=== PATIENT | female | born 1945 ===

== ENCOUNTER 2017-04-05 07:18 | Day surgery (SDC) | payer MEDICARE ==
[~2017-04-05 07:18] MED LIST: Acetaminophen TAB* 325 MG PO PRN; Buffered Lidocaine 0.9% SYRIN* 5 ML/SYR SYRINGE INTRADERM ONE
[2017-04-05] MEDS ORDERED: Midazolam* 1 MG/ML 2 ML VIAL (2 MG) ONE ×2 (08:34→08:38)
[2017-04-05 09:34] VITALS: BP 161/84
[2017-04-05] MEDS ORDERED: Lidocaine 1% MPF* 2 ML VIAL ONE (13:58)
[2017-04-05] MEDS ORDERED: Tropicamide 1% OPTH.SOL* BTL ONE (13:58)
[2017-04-05] MEDS ORDERED: Cyclopentolate 1% OPTH.SOL* 2 ML BTL ONE (13:58)
[2017-04-05] MEDS ORDERED: Povidone Iodine 5% OPTH* 30 ML BTL ONE (13:58)
[2017-04-05] MEDS ORDERED: Flurbiprofen 0.03% OPTH.SOL* 2.5 ML BTL ONE (13:58)
[2017-04-05] MEDS ORDERED: Buffered Lidocaine 0.9% SYRIN* 5 ML/SYR SYRINGE ONE (13:58)
[2017-04-05] MEDS ORDERED: Phenylephrine 2.5% OPTH.SOL* 2 ML BTL ONE (13:58)
[2017-04-05] MEDS ORDERED: Neomycin/Polymy/Dex OPHTH.OIN* 3.5 GM ONE (13:58)
[2017-04-05] MEDS ORDERED: acetaZOLAMIDE TAB* 250 MG ONE (13:58)
[2017-04-05] MEDS ORDERED: Tetracaine 0.5% OPTH.SOL 4 ML* 1 DROP BTL ONE (13:58)
--- NOTE | 2017-04-05 21:22 | OP ---
DATE OF OPERATION: 04/05/17 - [facility] DATE OF : 49 SURGEON: Kwame Calvo MD. ANESTHESIOLOGIST: Leydi Stein MD ANESTHESIA: Monitored anesthesia care. PRE-OPERATIVE DIAGNOSIS: Cataract, right eye. POST-OPERATIVE DIAGNOSIS: Cataract, right eye. OPERATIVE PROCEDURE: Cataract surgery, right eye. IMPLANTS: SN6AT5 20 diopter lens at 40 degrees in the right eye. COMPLICATIONS: None. DESCRIPTION OF PROCEDURE: The patient was given phenylephrine 2.5% and cyclopentolate 1% eyedrops in the operative eye in the preoperative area. The patient was brought to the operating room where a time-out was taken to identify the correct patient, site and side of surgery. The patient's right eye was prepped and draped in the usual sterile fashion with 5% Betadine. A second time-out was taken to verify the correct patient, site and side of surgery and correct lens selection. A lid speculum was placed to the right eye. Using an intraoperative degree marker, corneal markings at 40 degrees were indicated based on markings made in the preoperative area. A 1-mm paracentesis blade was used to make a clear corneal incision in the superotemporal position. Preservative-free 1% lidocaine was injected into the anterior chamber. DisCoVisc was then injected into the anterior chamber. A 2.75 mm keratome blade was used to make a triplanar incision at the inferotemporal position. A cystotome initiated a capsulorrhexis, which was completed with Utrata forceps in a continuous and curvilinear manner. Hydrodissection of the lens was performed with BSS on a cannula. The lens could be spun in the capsular bag. The phacoemulsification handpiece was used with a divide and conquer technique to remove the nucleus in its entirety with 15.53 CDE. The I/A handpiece then removed the residual cortical lens material. DisCoVisc was injected to inflate the capsular bag. The planned SN6AT5 20 diopter lens was injected into the capsular bag and rotated to 40 degrees. The residual DisCoVisc was removed from the eye with the I/A handpiece and again the lens was confirmed to be at the 40 degree meridian. The corneal incisions were hydrated and no leaks occurred at physiologic pressure around 20 mmHg per palpation. The lid speculum was removed and drapes removed. Maxitrol ointment was placed to the surface of the operative eye. An adhesive patch and shield was then placed on the operative eye. The patient was taken to the postoperative area in stable condition. [id number]/[facility] #: [id number] MTDD
== END 2017-04-05 09:30 | disposition home or self-care (01) ==
LOC: OREAST 07:18
PROVIDERS: ATTEND Student in an Organized Health Care Education/Training Program
DX: H25.11 Age-related nuclear cataract, right eye (principal); H04.123 Dry eye syndrome of bilateral lacrimal glands; J44.9 Chronic obstructive pulmonary disease, unspecified; I10 Essential (primary) hypertension; Z87.891 Personal history of nicotine dependence
CPT/HCPCS: A9270-GY; J2250; V2787

== ENCOUNTER 2017-04-12 09:32 | Day surgery (SDC) | payer MEDICARE ==
[~2017-04-12 09:32] MED LIST changes: -Acetaminophen TAB* 325 MG PO PRN
[2017-04-12] MEDS ORDERED: Midazolam* 1 MG/ML 2 ML VIAL (2 MG) ONE ×2 (11:27→11:33)
[2017-04-12 12:15] VITALS: BP 149/77
[2017-04-12] MEDS ORDERED: Cyclopentolate 1% OPTH.SOL* 2 ML BTL ONE (14:52)
[2017-04-12] MEDS ORDERED: acetaZOLAMIDE TAB* 250 MG ONE (14:52)
[2017-04-12] MEDS ORDERED: Tropicamide 1% OPTH.SOL* BTL ONE (14:52)
[2017-04-12] MEDS ORDERED: Phenylephrine 2.5% OPTH.SOL* 2 ML BTL ONE (14:52)
[2017-04-12] MEDS ORDERED: Tetracaine 0.5% OPTH.SOL 4 ML* 1 DROP BTL ONE (14:52)
[2017-04-12] MEDS ORDERED: Povidone Iodine 5% OPTH* 30 ML BTL ONE (14:52)
[2017-04-12] MEDS ORDERED: Ketorolac 0.5% OPHTH (NF) 0.5 % 5 ML BTL ONE (14:52)
[2017-04-12] MEDS ORDERED: Lidocaine 1% MPF* 2 ML VIAL ONE (14:52)
[2017-04-12] MEDS ORDERED: Neomycin/Polymy/Dex OPHTH.OIN* 3.5 GM ONE (14:52)
[2017-04-12] MEDS ORDERED: Buffered Lidocaine 0.9% SYRIN* 5 ML/SYR SYRINGE ONE (14:52)
--- NOTE | 2017-04-13 23:48 | OP ---
DATE OF OPERATION: 04/12/17 - [facility] DATE OF : 49 SURGEON: Kwame Calvo MD ANESTHESIOLOGIST: Brian Kurtz DO ANESTHESIA: Monitored anesthesia care. PRE-OP DIAGNOSIS: Cataract, left eye. POST-OP DIAGNOSIS: Cataract, left eye. PROCEDURE PERFORMED: Cataract surgery, left eye. IMPLANTS: SN60WF 20.0 diopter lens to the left eye. COMPLICATIONS: None. DESCRIPTION OF PROCEDURE: The patient was given phenylephrine 2.5% and cyclopentolate 1% eyedrops to the operative eye in the preoperative area. The patient was brought to the operating room where a time-out was taken to identify the correct patient, site, and side of the surgery. The patient's left eye was prepped and draped in the usual sterile fashion with 5% Betadine. A second time-out was taken to verify the correct patient, site and side of the surgery, and correct lens selection. A lid speculum was placed to the left eye. A 1-mm paracentesis blade was used to make a clear corneal incision in the inferotemporal position. Preservative-free 1% lidocaine was injected into the anterior chamber. DisCoVisc was then injected into the anterior chamber. A 2.75-mm keratome blade was used to make a triplanar incision at the superotemporal position. A cystotome initiated a capsulorrhexis, which was completed with Utrata forceps in a continuous and curvilinear manner. Hydrodissection of the lens was performed with BSS on a cannula. The lens could be spun in the capsular bag. The phacoemulsification handpiece was used with a [id number]-bdw-throoku technique to remove the nucleus in its entirety with 14.96 CDE. The I/A handpiece then removed the residual cortical lens material. DisCoVisc was injected to inflate the capsular bag. The planned SN60WF 20.0 diopter lens was injected into the capsular bag. The residual DisCoVisc was removed from the eye with the I/A handpiece. The corneal incisions were hydrated and no leaks occurred at physiologic pressure around 20 mmHg per palpation. The lid speculum was removed and drapes removed. Maxitrol ointment was placed on the surface of the operative eye. An adhesive patch and shield was then placed on the operative eye. The patient was taken to the postoperative area in stable condition. [id number]/[facility] #: [id number] [facility]
== END 2017-04-12 11:52 | disposition home or self-care (01) ==
LOC: OREAST 09:32
PROVIDERS: ATTEND Student in an Organized Health Care Education/Training Program
DX: H25.12 Age-related nuclear cataract, left eye (principal); H04.123 Dry eye syndrome of bilateral lacrimal glands; Z87.891 Personal history of nicotine dependence
CPT/HCPCS: A9270-GY; J2250; V2632